=== PATIENT | male | born 1995 | race Caucasian/White ===

== ENCOUNTER 2017-10-20 09:30 | Emergency (ER) | payer MEDICAID, OTHER ==
[~2017-10-20] VITALS: Ht 5787.1 cm; Wt 86.2 kg
[~2017-10-20 09:30] MED LIST: DIAZ5TAB PO; IBUP-1986 PO; NO HOME MEDS
[2017-10-20] MEDS ORDERED: IBUP-1984 PO (10:10)
== END 2017-10-20 10:20 | disposition home or self-care (01) ==
LOC: ER 09:32
DX: M77.12 Lateral epicondylitis, left elbow (principal); M67.442 Ganglion, left hand; F12.90 Cannabis use, unspecified, uncomplicated; Z98.890 Other specified postprocedural states
CPT/HCPCS: 99282; A6449

== ENCOUNTER 2018-12-03 21:11 | Emergency (ER) | payer MEDICAID ==
[~2018-12-03] VITALS: Ht 175.3 cm; Wt 61.8 kg
[2018-12-03] MEDS ORDERED: TETanus/Pertussis (Acell)/Diphther VAC/PF (Tdap-Adult) 0.5ml syringe IM ONE (21:55)
[2018-12-03] MEDS ORDERED: acetaminophen 325mg tablet PO ONE (22:00)
[2018-12-03 22:17] VITALS: BP 130/71
== END 2018-12-03 22:20 | disposition home or self-care (01) ==
LOC: ER 21:12
DX: S61.210A Laceration without foreign body of right index finger without damage to nail, initial encounter (principal); F12.90 Cannabis use, unspecified, uncomplicated; Z98.890 Other specified postprocedural states; Z79.899 Other long term (current) drug therapy; W25.XXXA Contact with sharp glass, initial encounter; Y93.89 Activity, other specified; Y92.89 Other specified places as the place of occurrence of the external cause; Y99.0 Civilian activity done for income or pay
CPT/HCPCS: 90471; 90715; 99283

== ENCOUNTER 2019-02-13 13:18 | Emergency (ER) | payer MEDICAID ==
[~2019-02-13] VITALS: Ht 172.7 cm; Wt 76.2 kg
[2019-02-13 13:35] VITALS: BP 131/84
[2019-02-13] MEDS ORDERED: TRAM50TA2 PO (14:08)
[2019-02-13] MEDS ORDERED: PENI500T2 PO (14:08)
== END 2019-02-13 14:22 | disposition home or self-care (01) ==
LOC: ER 13:19
DX: K08.89 Other specified disorders of teeth and supporting structures (principal); K02.9 Dental caries, unspecified; F12.90 Cannabis use, unspecified, uncomplicated; F17.200 Nicotine dependence, unspecified, uncomplicated; Z98.890 Other specified postprocedural states; Z79.899 Other long term (current) drug therapy
CPT/HCPCS: 99283

== ENCOUNTER 2020-01-22 23:11 | Emergency (ER) | payer MEDICAID ==
[~2020-01-22] VITALS: Ht 175.3 cm; Wt 91.8 kg
[2020-01-22 23:15] VITALS: BP 136/82
[2020-01-22] MEDS ORDERED: BUPIVAcaine 0.5% W/EPI /PF 30ml vial IJ STA (23:32)
== END 2020-01-23 00:08 | disposition home or self-care (01) ==
LOC: ER 23:12
DX: K08.89 Other specified disorders of teeth and supporting structures (principal); F12.90 Cannabis use, unspecified, uncomplicated; Z98.890 Other specified postprocedural states; Z79.899 Other long term (current) drug therapy
CPT/HCPCS: 64400; 99281; 99284

== ENCOUNTER 2020-02-08 03:53 | Emergency (ER) | payer MEDICAID ==
[~2020-02-08] VITALS: Ht 175.3 cm; Wt 91.8 kg
[2020-02-08 03:57] VITALS: BP 153/104
[2020-02-08] MEDS ORDERED: IBUP-1984 PO (04:14)
[2020-02-08] MEDS ORDERED: AMOX500C2 PO (04:14)
[2020-02-08] MEDS ORDERED: ketorolac trometh inj. 60 MG/2 ML VIAL IM ONE (04:15)
== END 2020-02-08 04:22 | disposition home or self-care (01) ==
LOC: ER 03:54
DX: K08.89 Other specified disorders of teeth and supporting structures (principal); F12.90 Cannabis use, unspecified, uncomplicated; Z98.890 Other specified postprocedural states; Z59.0 Homelessness; Z79.2 Long term (current) use of antibiotics; Z79.899 Other long term (current) drug therapy
CPT/HCPCS: 99283

== ENCOUNTER 2020-02-13 11:50 | Emergency (ER) | payer MEDICAID ==
[~2020-02-13] VITALS: Ht 175.3 cm; Wt 88.0 kg
[~2020-02-13 11:50] MED LIST changes: +AMOX500C2 PO; +IBUP-1984 PO
[2020-02-13 12:00] VITALS: BP 148/92
[2020-02-13] MEDS ORDERED: LIDOcaine Viscous 15ml cup MM STA (12:59)
[2020-02-13] MEDS ORDERED: CHLO473M3 PO (13:07)
[2020-02-13] MEDS ORDERED: LIDO20SO16 PO (13:07)
== END 2020-02-13 13:46 | disposition home or self-care (01) ==
LOC: ER 11:50
DX: K08.89 Other specified disorders of teeth and supporting structures (principal); K02.9 Dental caries, unspecified; K12.1 Other forms of stomatitis; F12.90 Cannabis use, unspecified, uncomplicated; Z98.890 Other specified postprocedural states; Z59.0 Homelessness; Z79.2 Long term (current) use of antibiotics; Z79.899 Other long term (current) drug therapy
CPT/HCPCS: 99282

== ENCOUNTER 2020-06-22 06:30 | Emergency (ER) | payer MEDICAID ==
[~2020-06-22] VITALS: Ht 172.7 cm; Wt 93.2 kg
[~2020-06-22 06:30] MED LIST changes: -AMOX500C2 PO; +CHLO473M3 PO; -IBUP-1984 PO; +LIDO20SO16 PO
[2020-06-22 06:42] VITALS: BP 141/94
[2020-06-22] MEDS ORDERED: AMOX500C2 PO (06:52)
[2020-06-22] MEDS ORDERED: HYDR-3965 PO (06:52)
== END 2020-06-22 07:06 | disposition home or self-care (01) ==
LOC: ER 06:30
DX: K08.89 Other specified disorders of teeth and supporting structures (principal); F12.90 Cannabis use, unspecified, uncomplicated; Z98.890 Other specified postprocedural states; Z59.0 Homelessness; Z79.899 Other long term (current) drug therapy
CPT/HCPCS: 99283

== ENCOUNTER 2020-08-21 00:33 | Emergency (ER) | payer MEDICAID ==
[~2020-08-21] VITALS: Ht 172.7 cm; Wt 91.8 kg
[2020-08-21 00:37] VITALS: BP 131/92
== END 2020-08-21 00:46 | disposition left against medical advice (07) ==
LOC: ER 00:33
DX: K08.89 Other specified disorders of teeth and supporting structures (principal); Z53.21 Procedure and treatment not carried out due to patient leaving prior to being seen by health care provider